=== PATIENT | female | born 1955 | race Caucasian/White ===

== ENCOUNTER 2022-04-16 11:18 | Day surgery (SDC) | payer OTHER ==
[~2022-04-16] VITALS: Ht 167.6 cm; Wt 78.1 kg
[~2022-04-16 11:18] MED LIST: ARMOUR THYROID PO; HORMONE CREAM; HYDACE5 PO; HYDROCODONE 5MG PO; IBUP800 PO; Norco 5-325 Ta1 EACH PO; THYR60 PO
--- NOTE | 2022-04-16 13:39 | NUR ---
History, Chart, Medications and Allergies reviewed before start of procedure. Patient confirms NPO status and agrees with scheduled surgery. PT GLASSES PLACED WITH BELONGINGS.
--- NOTE | 2022-04-16 17:25 | NUR ---
Discharge instructions reviewed with patient. Patient verbalizes understanding. Copy given to patient to take home. Dressing to procedure site clean, dry, intact with no visible drainage, swelling, erythema or bruising noted. Discharged via wheelchair to private car for ride home.
== END 2022-04-16 17:20 | disposition home or self-care (01) ==
LOC: ORSCMMR 11:18
PROVIDERS: Orthopaedic Surgery
PROC: 0QSF04Z Reposition Left Patella with Internal Fixation Device, Open Approach (ICD-10-PCS; principal; 2022-04-16 12:00)
DX: S82.042D Displaced comminuted fracture of left patella, subsequent encounter for closed fracture with routine healing (principal); E03.9 Hypothyroidism, unspecified; Z79.899 Other long term (current) drug therapy
CPT/HCPCS: 73560-LT; 93005; 93010; A9270; J0690; J1100; J1170; J2250; J2405; J2704; J3010; J7120

== ENCOUNTER 2023-01-17 06:05 | Day surgery (SDC) | payer OTHER ==
[~2023-01-17] VITALS: Ht 167.6 cm; Wt 71.0 kg
[2023-01-17 11:19] VITALS: BP 137/98
--- NOTE | 2023-01-17 11:22 | NUR ---
01/17/23 1122 Stephanie Alvarez LATE ENTRY PT ABLE TO TOLERATE EATING AND DRINKING WITH NO ISSUES. PT PAIN MANAGED WITH 1 DOSE OF 25 MCG OF FENTANYL AND 1 DOSE OF OXYCODONE 5MG PER ORDERS. PT STATED PAIN WAS TOLERABLE 3 AT DISCHARGE. PT DENIED NAUSEA. VSS. ALL QUESTIONS ANSWERED FOR DISCHARGE INSTRUCTIONS. PT EXPRESSED READINESS TO GO HOME.
== END 2023-01-17 09:54 | disposition home or self-care (01) ==
LOC: ORSCSDS 06:05
PROVIDERS: Orthopaedic Surgery
PROC: 0SPD04Z Removal of Internal Fixation Device from Left Knee Joint, Open Approach (ICD-10-PCS; principal; 2023-01-17 07:30)
DX: T84.84XA Pain due to internal orthopedic prosthetic devices, implants and grafts, initial encounter (principal); E03.9 Hypothyroidism, unspecified; Z79.899 Other long term (current) drug therapy
CPT/HCPCS: A9270; J0171; J0690; J1100; J2250; J2371; J2405; J2704; J2795; J3010; J7120

== ENCOUNTER 2024-11-19 06:14 | Day surgery (SDC) | payer OTHER ==
[~2024-11-19] VITALS: Ht 167.6 cm; Wt 86.5 kg
[~2024-11-19 06:14] MED LIST changes: +Lactated Ringer's 1,000 ML IV ONE
[2024-11-19] MEDS ORDERED: Tranexamic Acid 100 ML IV ONE ×2 (06:40→10:36)
[2024-11-19] MEDS ORDERED: CeFAZolin Sodium 2,000 MG VIAL ONE (06:41)
[2024-11-19] MEDS ORDERED: AMLODIPINE BES2.5 MG PO (06:52)
[2024-11-19] MEDS ORDERED: EUTHYROX88 MC1 PO (06:52)
[2024-11-19] MEDS ORDERED: BUPROPION (06:56)
[2024-11-19] MEDS ORDERED: NALTREXONE (06:56)
[2024-11-19] MEDS ORDERED: Lactated Ringer's 1,000 ML IV ONE ×2 (07:00→08:18)
[2024-11-19] MEDS ORDERED: Midazolam HCl 1MG / ML 2ML Vial ONE (07:08)
[2024-11-19] MEDS ORDERED: Bupivacaine 0.5% W/EPI 1:200000 SDV 30 ML Vial ONE (07:10)
[2024-11-19] MEDS ORDERED: Acetaminophen 500 MG Tab ONE (07:12)
[2024-11-19] MEDS ORDERED: FentaNYL Citrate 50 MCG/ML 2 ML Injection ONE (07:24)
[2024-11-19] MEDS ORDERED: propofoL 20 ML IV ONE (07:24)
[2024-11-19] MEDS ORDERED: CLONIDINE HCL 1000 MCG/10 ML EPI SCH (07:25)
--- NOTE | 2024-11-19 07:26 | NUR ---
11/19/24 0726 Angelina Lopez 0715: TIMEOUT FOR BLOCK 0716: START OF BLOCK 0721: END OF BLOCK BY GUDELIA AGUILAR. PT TOLERATED WELL. ON ROOM AIR WITH PULSE OXIMETER ON.
[2024-11-19] MEDS ORDERED: Dexamethasone Sod Phos 10 MG/ML 1ML VIAL ONE (07:41)
[2024-11-19] MEDS ORDERED: Ondansetron HCl 2 MG / ML 2ML Vial ONE (07:41)
[2024-11-19] MEDS ORDERED: Ketorolac Tromethamine 30mg Vial ONE (07:42)
[2024-11-19] MEDS ORDERED: Bupivacaine 0.5% HCl 5 MG/ML 30MLVIAL ONE (07:42)
[2024-11-19] MEDS ORDERED: EPINEPhrine HCl 1 MG/ML 1ML Amp ONE (07:42)
[2024-11-19] MEDS ORDERED: Glycopyrrolate 0.2 MG/ML 5ML VIAL ONE (07:44)
[2024-11-19] MEDS ORDERED: CeFAZolin Sodium 2,000 MG in NS 100 ML IV SCH (08:05)
[2024-11-19] MEDS ORDERED: Ropivacaine 0.5% HCl/Pf 123.125 MG,EPINEPHrine HCL 0.25 MG,Ketorolac Tromethamine 15 MG... INFIL SCH (08:05)
[2024-11-19] MEDS ORDERED: Tranexamic Acid 100 ML IV SCH (08:10)
[2024-11-19] MEDS ORDERED: Acetaminophen 500 MG Tab PO SCH (08:10)
[2024-11-19] MEDS ORDERED: Sugammadex Sodium 200 MG/2ML SDV (100 MG/ML) ONE (09:32)
[2024-11-19] MEDS ORDERED: HYDROmorphone HCl/Pf 1MG SYR ONE (09:39)
--- NOTE | 2024-11-19 09:45 | NUR ---
11/19/24 0945 Radha Torrez 50ML OF JOINT COCKTAIL INJECTED AT OPSITE BY DR GODINEZ AT 0900
[2024-11-19 10:25] VITALS: BP 130/75
--- NOTE | 2024-11-19 10:52 | NUR ---
11/19/24 1052 Reynolds,King ARELLANO STARTED PER ORDERS.
== END 2024-11-19 11:39 | disposition home or self-care (01) ==
LOC: ORSCSDS 06:14
PROVIDERS: Podiatrist Foot & Ankle Surgery
PROC: 0SRG0JZ Replacement of Left Ankle Joint with Synthetic Substitute, Open Approach (ICD-10-PCS; principal; 2024-11-19 07:30)
PROC: 0MQR0ZZ Repair Left Ankle Bursa and Ligament, Open Approach (ICD-10-PCS; principal; 2024-11-19 07:30)
PROC: 0L8P0ZZ Division of Left Lower Leg Tendon, Open Approach (ICD-10-PCS; principal; 2024-11-19 07:30)
DX: M19.072 Primary osteoarthritis, left ankle and foot (principal); M24.572 Contracture, left ankle; M25.372 Other instability, left ankle; I10 Essential (primary) hypertension; E03.9 Hypothyroidism, unspecified; Z79.899 Other long term (current) drug therapy
CPT/HCPCS: A6253; A9270; C1713; C1769; C1776; J0171; J0690; J0735; J1100; J1171; J1885; J2250; J2405; J2704; J2795; J3010; J7120

== ENCOUNTER → 2025-03-22 | Outpatient (CLI) | payer OTHER ==
[~2025-03-22] MED LIST changes: +AMLODIPINE BES2.5 MG PO; +BUPROPION; +EUTHYROX88 MC1 PO; -Lactated Ringer's 1,000 ML IV ONE; +NALTREXONE
[2025-03-22 12:58] LABS: BASOPHILS ABSOLUTE AUTO 0.07 K/mm3 (0.00-0.23); BASOPHILS PERCENT AUTO 1 % (0-2); EOSINOPHILS ABSOLUTE AUTO 0.18 K/mm3 (0.00-0.68); EOSINOPHILS PERCENT AUTO 2 % (0-6); Hematocrit 39.0 % (33.0-51.0); Hemoglobin 12.8 g/dL (11.5-16.0); IMMATURE GRAN ABSOLUTE AUTO 0.04 K/mm3 (0.00-0.10); IMMATURE GRAN PERCENT AUTO 1 % (0-1); LYMPHOCYTES ABSOLUTE AUTO 2.08 K/mm3 (0.84-5.20); LYMPHOCYTES PERCENT AUTO 25 % (21-46); MONOCYTES ABSOLUTE AUTO 0.70 K/mm3 (0.16-1.47); MONOCYTES PERCENT AUTO 9 % (4-13); Mean Corpuscular HGB Conc 32.8 g/dL (31.5-36.5); Mean Corpuscular Volume 90 fL (80-100); NEUTROPHILS ABSOLUTE AUTO 5.13 K/mm3 (1.96-9.15); NEUTROPHILS PERCENT AUTO 63 % (41-73); NRBC ABSOLUTE 0.00 K/mm3 (0.00-0.02); NRBC Auto 0.0 /100 WBC (0.0-0.2); Platelet Count 319 K/mm3 (150-400); RDW Coefficient Variation 13.8 % (11.7-14.2); RDW Standard Deviation 45.1 fL (35.1-46.3)
[2025-03-22 13:11] LABS: Alanine Aminotransfer (ALT/SGP 34.0 U/L (12-78); Albumin, Blood 3.8 g/dL (3.4-5.0); Albumin/Globulin Ratio 1.1 (0.8-1.8); Anion Gap 11.0 mmol/L (3-11); Aspartate Aminotrans (AST/SGOT 23.0 U/L (12-37); Bilirubin, Total 0.5 mg/dL (0.1-1.0); Blood Urea Nitrogen 16.0 mg/dL (8-24); CO2, Blood 28.0 mmol/L (21-32); Calcium, Blood 9.0 mg/dL (8.5-10.1); Chloride, Blood 107.0 mmol/L (98-108); Creatinine, Blood 0.72 mg/dL (0.40-1.00); Globulin, Blood 3.4 g/dL (2.2-4.0); Glucose, Blood 101.0 mg/dL (70-99); Potassium, Blood 4.2 mmol/L (3.5-5.5); Sodium, Blood 142.0 mmol/L (136-145); Total Protein, Blood 7.2 g/dL (6.4-8.2)
== END ==
LOC: LAB SHORT 12:51 → LAB 12:51
PROVIDERS: Physician Assistant
DX: R07.9 Chest pain, unspecified (principal); R82.998 Other abnormal findings in urine
CPT/HCPCS: 80053; 83690; 84484; 85025; 85379; 87086